=== PATIENT | male | born 1945 | race Caucasian/White ===

== ENCOUNTER → 2018-05-05 | Day surgery (SDC) | payer OTHER ==
[~2018-05-05] MED LIST: ALPR0.5T6 PO; ASPI325T8 PO; BACL10TA PO; CETI10TA22 PO; DOCU-109 PO; FLUT16SP21 NS; IV RINGERS SOLUTION,LACTATED 1,000 ML IV SCH; LIDOCAINE 2% PF Vial for OR 5 ML VIAL. ONE; LISI10TA2 PO; MELO7.5T29 PO; OMEP40CA5 PO; ONDANSETRON PF 4 MG/2 ML VIAL. IV PRN; PRAV20TA2 PO; PROPOFOL 20 ML IV ONE; PROPOFOL 40 ML IV ONE
[2018-05-05 13:27] VITALS: BP 156/101
--- NOTE | 2018-05-09 17:09 | PATHOLOGY ---
[facility] [place] Accession Number: [id number] . 01 Material submitted: . ANTRUM BIOPSY . 01 Clinical history: . Heartburn, rule out gastritis . 02 Diagnosis: Gastric biopsy, antrum: - Chronic gastritis, mild. . (JPM:mm; 05/09/2018) [facility]/05/09/2018 . 02 Comment: Sections of the gastric antral biopsy show congestion and very mild chronic inflammation. A properly-controlled immunoperoxidase stain for Helicobacter is negative for Helicobacter organisms. There is no evidence of malignancy. . Special stain: Immunoperoxidase stain for Helicobacter. . (JPM:mml; 05/09/2018) . 02 Electronically signed: . Jerardo Chris MD, Pathologist NPI- [id number] . 01 Gross description: . Received in formalin labeled "Nicoleoesr, Mio, antrum BX," is a single segment of bonner soft tissue measuring 0.5 cm in maximum dimension. The specimen is entirely submitted in cassette A1. (TSD; 05/08/2018) TOB/TOB . 02 Pathologist provided ICD-10: K29.50 . 02 CPT . 859326, O39223 Specimen Comment: A courtesy copy of this report has been sent to Specimen Comment: [phone], . Specimen Comment: Report sent to and Specimen Comment: A duplicate report has been generated due to demographic updates. Performed at: [facility] [address], [place] [id number] MD Juan Roche MD Phone: [phone] Performed at: 02 [facility] [address], [place] [id number] MD Jerardo Chris MD Phone: [phone]
== END | disposition home or self-care (01) ==
LOC: SURG 10:16
PROVIDERS: ATTEND Internal Medicine Gastroenterology
DX: Z12.11 Encounter for screening for malignant neoplasm of colon (principal); K57.30 Diverticulosis of large intestine without perforation or abscess without bleeding; K21.0 Gastro-esophageal reflux disease with esophagitis; K29.50 Unspecified chronic gastritis without bleeding; K29.00 Acute gastritis without bleeding; Z79.899 Other long term (current) drug therapy; Z79.82 Long term (current) use of aspirin; F41.9 Anxiety disorder, unspecified; J45.909 Unspecified asthma, uncomplicated; Z90.49 Acquired absence of other specified parts of digestive tract; Z98.890 Other specified postprocedural states; Z72.89 Other problems related to lifestyle
CPT/HCPCS: 43239; 45378; J2704; J7120; 88305; 88342; J2001